=== PATIENT | female | born 1990 | race Caucasian/White ===

== ENCOUNTER 2020-04-05 17:00 | Emergency (ER) | payer SELFPAY ==
[~2020-04-05] VITALS: Ht 152.4 cm; Wt 68.8 kg
[2020-04-05] MEDS ORDERED: VENTAER INH (17:22)
[2020-04-05] MEDS ORDERED: ALBUTEROL 90 MCG/ACT 8GM HFA INHALER INH ONE (17:45)
[2020-04-05] MEDS ORDERED: predniSONE 20 MG TAB PO ONE (17:45)
[2020-04-05] MEDS ORDERED: AZIT-12 PO (20:00)
[2020-04-05] MEDS ORDERED: MEDR4PAK PO (20:00)
[2020-04-05 20:10] VITALS: BP 137/80
--- NOTE | 2020-04-06 08:20 | REP ---
Clinical: Cough and shortness of breath . Comparison: None . Findings: The mediastinum and cardiac silhouette are stable and within normal limits for portable technique. The lung woodruff are clear without acute consolidation, effusion, or pneumothorax. Skeletal structures are intact. Impression: No acute cardiopulmonary process appreciated. Electronically Signed by Bubba Barton MD 04/06/2020 08:11 A
== END 2020-04-05 20:15 | disposition home or self-care (01) ==
LOC: M ED 17:00
DX: J45.901 Unspecified asthma with (acute) exacerbation (principal); J02.0 Streptococcal pharyngitis; Z88.8 Allergy status to other drugs, medicaments and biological substances